=== PATIENT | male | born 1995 | race Caucasian/White ===

== ENCOUNTER 2017-01-15 03:19 | Emergency (ER) | payer BC, OTHER ==
[~2017-01-15] VITALS: Ht 170.2 cm; Wt 75.1 kg
[2017-01-15] MEDS ORDERED: HYDROmorphone 1 MG/ML, 1ML IM ONE (04:30)
[2017-01-15] MEDS ORDERED: SODIUM CHLORIDE 0.9% 1,000 ML IV ONE (04:35)
[2017-01-15] MEDS ORDERED: ONDANSETRON 2MG/ML, 2ML ONE (04:35)
[2017-01-15] MEDS ORDERED: HYDROmorphone 1 MG/ML, 1ML ONE (04:35)
[2017-01-15] MEDS ORDERED: ONDANSETRON 2MG/ML, 2ML IVPush ONE (05:00)
[2017-01-15] MEDS ORDERED: HYDROmorphone 1 MG/ML, 1ML IVPush PRN (05:00)
[2017-01-15] MEDS ORDERED: SODIUM CHLORIDE 0.9% 1,000ML IVBOLUS ONE (05:00)
[2017-01-15 05:15] VITALS: BP 122/70
== END 2017-01-15 07:04 | disposition home or self-care (01) ==
LOC: ED 04:08
DX: S02.642B Fracture of ramus of left mandible, initial encounter for open fracture (principal); S02.5XXA Fracture of tooth (traumatic), initial encounter for closed fracture; X58.XXXA Exposure to other specified factors, initial encounter; Y93.89 Activity, other specified; Y92.89 Other specified places as the place of occurrence of the external cause; Y99.9 Unspecified external cause status
CPT/HCPCS: 96361; 96374; 96375; 99285; J1170; J2405; J7030

== ENCOUNTER 2017-01-31 17:55 | Day surgery (SDC) | payer OTHER ==
[~2017-01-31] VITALS: Ht 171.4 cm; Wt 77.2 kg
[~2017-01-31 17:55] MED LIST: CEFAZOLIN 1,000 MG ONE; DEXAMETHASONE 4 MG/ML, 5ML ONE; KETOROLAC 30 MG/1 ML ONE; ONDANSETRON 2MG/ML, 2ML ONE; PROPOFOL 10 MG/ML, 20ML ONE
[2017-01-31 18:13] VITALS: BP 102/46
[2017-01-31] MEDS ORDERED: IBUP-1223 PO (18:25)
[2017-01-31] MEDS ORDERED: AMOX1TAB12 PO (18:25)
[2017-01-31] MEDS ORDERED: ONDA4TAB13 SL (18:25)
[2017-01-31] MEDS ORDERED: HYDR-3245 PO (18:25)
[2017-01-31] MEDS ORDERED: LACTATED RINGERS 1,000 ML IV SCH (18:25)
[2017-01-31] MEDS ORDERED: AMOX-291 PO (18:25)
[2017-01-31] MEDS ORDERED: BALANCED SALT OPHTH IRRIG SOLN 18ML ONE (18:35)
[2017-01-31] MEDS ORDERED: LIDOCAINE/MPF 2%-EPI 1:200K, 20 ML ONE (18:44)
[2017-01-31] MEDS ORDERED: MIDAZOLAM 1 MG/ML, 2ML ONE (18:55)
[2017-01-31] MEDS ORDERED: FENTANYL PF 250 MCG/5ML ONE (18:58)
[2017-01-31] MEDS ORDERED: HYDROmorphone 1 MG/ML, 1ML ONE ×2 (19:11→19:31)
[2017-01-31] MEDS ORDERED: FENTANYL PF 100 MCG/2ML IV PRN (19:30)
[2017-01-31] MEDS ORDERED: OXYcodone 5 MG/5 ML ORAL.SOL UDC PO PRN (19:30)
[2017-01-31] MEDS ORDERED: HYDROmorphone 1 MG/ML, 1ML IV PRN (19:30)
[2017-01-31] MEDS ORDERED: ONDANSETRON 2MG/ML, 2ML IVPush PRN (19:30)
[2017-01-31] MEDS ORDERED: OXYcodone 5 MG/5 ML ORAL.SOL UDC ONE (21:17)
== END 2017-01-31 23:59 | disposition home or self-care (01) ==
LOC: OUT 17:55 → 4NOR 21:45 → OUT 23:59
PROVIDERS: ATTEND Dentist
DX: S02.652A Fracture of angle of left mandible, initial encounter for closed fracture (principal); S02.66XA Fracture of symphysis of mandible, initial encounter for closed fracture
CPT/HCPCS: 21462; 70100; C1713; J0690; J1100; J1170; J1885; J2250; J2405; J2704; J3010; J3490; J7120